=== PATIENT | female | born 1945 | race Caucasian/White ===

== ENCOUNTER 2022-02-07 18:51 | Observation (INO) ==
[2022-02-07] MEDS ORDERED: Naloxone 0.4 MG/ML INJ IVP PRN (23:17)
[2022-02-07] MEDS ORDERED: *HR* OxyCODONE Immed Rel 5 MG TABLET PO PRN (23:17)
[2022-02-07] MEDS ORDERED: Ondansetron ODT 4 MG TAB.RAPDIS SL PRN (23:17)
[2022-02-07] MEDS ORDERED: *HR* HYDROcodone/Acet 5/325 mg TABLET PO PRN (23:17)
[2022-02-07] MEDS ORDERED: Dextrose Gel 15 GM/37.5 ML TUBE PO PRN ×2 (23:41)
[2022-02-07] MEDS ORDERED: D5% in Water 1,000 ML IVC PRN (23:41)
[2022-02-07] MEDS ORDERED: *HR* Dextrose 50 % in Water (Syg) 50 ML SYRINGE IVP PRN (23:41)
[2022-02-08] MEDS: Insulin LISPRO 300 UNITS/3 ML VIAL SUBQ SCH ×5 (00:19→20:46)
[2022-02-08] MEDS: Insulin DETEMIR 100 UNIT/ML X5UNITS SUBQ SCH ×2 (00:21→08:49)
[2022-02-08] MEDS: Aspirin Enteric Coated 81 MG Tablet PO SCH ×2 (00:51→21:56)
[2022-02-08 06:30] LABS: Hematocrit 33.7 % (35.3-44.9); Hemoglobin 10.9 g/dL (11.5-15.4); Mean Corpuscular HGB Conc 32.3 g/dL (31.6-35.5); Mean Corpuscular Hemoglobin 30.4 pg (28.0-33.3); Mean Corpuscular Volume 94.1 fL (83.0-100.0); Mean Platelet Volume 10.9 fL (9.4-12.4); Platelet Count 264 K/mcL (140-400); Red Blood Count 3.58 M/mcL (3.82-4.97); White Blood Count 8.5 K/mcL (4.3-11.1)
[2022-02-08 07:11] LABS: Calcium 9.3 mg/dL (8.6-10.3); Phosphorous 3.3 mg/dL (2.7-4.5); Potassium 3.3 mEq/L (3.5-5.1)
[2022-02-08] MEDS: Isosorbide MONOnitrate (24 HR) 60 MG TAB.ER.24H PO SCH (08:49)
[2022-02-08] MEDS: amLODIPine 5 MG TABLET PO SCH (08:49)
[2022-02-08] MEDS: Furosemide 40 MG TABLET PO SCH (08:49)
[2022-02-08] MEDS ORDERED: 0.9 % Sodium Chloride 250 ML IVC PRN (09:29)
[2022-02-08] MEDS ORDERED: Ethyl Chloride Spray Bottle (104 SPRAY/BOTTLE) TP PRN (09:29)
[2022-02-08 09:30] LABS: Hepatitis B Surface Antibody < 3.10 mIU/mL
[2022-02-08] MEDS ORDERED: 0.9 % Sodium Chloride 2,000 ML PRIME SCH (09:30)
[2022-02-08 09:41] LABS: Hepatitis B Surface Antigen Nonreactive (Nonreactive)
[2022-02-08] MEDS ORDERED: *HR* HYDROcodone/Acet 5/325 mg TABLET PO PRN ×2 (09:49→13:24)
[2022-02-08 11:02] LABS: Estimated Average Glucose 123 mg/dl; Hemoglobin A1C 5.9 %
[2022-02-08] MEDS: Acetaminophen 325 MG TABLET PO PRN (12:20)
[2022-02-08] MEDS: *HR* HYDROcodone/Acet 5/325 mg TABLET PO PRN ×2 (15:15→21:55)
[2022-02-08] MEDS: Melatonin 3 MG TABLET PO PRN (21:56)
[2022-02-09] MEDS: *HR* HYDROcodone/Acet 5/325 mg TABLET PO PRN ×3 (06:04→17:02)
[2022-02-09 06:26] LABS: Basophils # 0.1 K/mcL (0.0-0.2); Basophils % 0.6 %; Eosinophils # 0.3 K/mcL (0.0-0.6); Eosinophils % 3.7 %; Hematocrit 33.7 % (35.3-44.9); Hemoglobin 11.1 g/dL (11.5-15.4); Immature Granulocytes % 0.7 % (0-4); Lymphocytes # 2.5 K/mcL (0.6-4.6); Mean Corpuscular HGB Conc 32.9 g/dL (31.6-35.5); Mean Corpuscular Hemoglobin 31.3 pg (28.0-33.3); Mean Corpuscular Volume 94.9 fL (83.0-100.0); Mean Platelet Volume 10.9 fL (9.4-12.4); Monocytes # 0.8 K/mcL (0.0-1.3); Neutrophils # 4.7 K/mcL (1.6-8.9); Platelet Count 250 K/mcL (140-400); Red Blood Count 3.55 M/mcL (3.82-4.97); Red Cell Distribution Width 13.1 % (11.5-14.5); White Blood Count 8.3 K/mcL (4.3-11.1)
[2022-02-09 06:44] LABS: Calcium 9.1 mg/dL (8.6-10.3); Potassium 3.6 mEq/L (3.5-5.1)
[2022-02-09] MEDS: Insulin LISPRO 300 UNITS/3 ML VIAL SUBQ SCH ×4 (07:41→21:58)
[2022-02-09] MEDS: amLODIPine 5 MG TABLET PO SCH (08:25)
[2022-02-09] MEDS: Isosorbide MONOnitrate (24 HR) 60 MG TAB.ER.24H PO SCH (08:26)
[2022-02-09] MEDS: Aspirin Enteric Coated 81 MG Tablet PO SCH (08:26)
[2022-02-09] MEDS: Furosemide 40 MG TABLET PO SCH (08:26)
[2022-02-09] MEDS ORDERED: Insulin DETEMIR 100 UNIT/ML X5UNITS SUBQ SCH (09:00)
[2022-02-09] MEDS: Acetaminophen 325 MG TABLET PO PRN (09:34)
[2022-02-09] MEDS ORDERED: *HR* HYDROcodone/Acet 5/325 mg TABLET PO PRN (13:54)
[2022-02-09] MEDS: Melatonin 3 MG TABLET PO PRN (20:39)
[2022-02-10 04:57] LABS: Calcium 9.2 mg/dL (8.6-10.3); Potassium 4.3 mEq/L (3.5-5.1)
[2022-02-10] MEDS ORDERED: 0.9 % Sodium Chloride 250 ML IVC PRN (06:46)
[2022-02-10] MEDS ORDERED: 0.9 % Sodium Chloride 2,000 ML PRIME SCH (07:00)
[2022-02-10] MEDS: amLODIPine 5 MG TABLET PO SCH (08:19)
[2022-02-10] MEDS: Aspirin Enteric Coated 81 MG Tablet PO SCH (08:19)
[2022-02-10] MEDS: Furosemide 40 MG TABLET PO SCH (08:19)
[2022-02-10] MEDS: Isosorbide MONOnitrate (24 HR) 60 MG TAB.ER.24H PO SCH (08:19)
[2022-02-10] MEDS: Insulin LISPRO 300 UNITS/3 ML VIAL SUBQ SCH ×4 (08:20→19:16)
[2022-02-10] MEDS ORDERED: Insulin DETEMIR 100 UNIT/ML X5UNITS SUBQ SCH (09:00)
[2022-02-10] MEDS: *HR* HYDROcodone/Acet 5/325 mg TABLET PO PRN (14:25)
[2022-02-11 03:50] LABS: Potassium 4.4 mEq/L (3.5-5.1)
[2022-02-11] MEDS: Furosemide 40 MG TABLET PO SCH (09:00)
[2022-02-11] MEDS: amLODIPine 5 MG TABLET PO SCH (09:00)
[2022-02-11] MEDS: Isosorbide MONOnitrate (24 HR) 60 MG TAB.ER.24H PO SCH (09:01)
[2022-02-11] MEDS: Insulin DETEMIR 100 UNIT/ML X5UNITS SUBQ SCH (09:01)
[2022-02-11] MEDS: Aspirin Enteric Coated 81 MG Tablet PO SCH (09:01)
[2022-02-11] MEDS: Insulin LISPRO 300 UNITS/3 ML VIAL SUBQ SCH ×4 (09:06→19:34)
[2022-02-11] MEDS ORDERED: Acetaminophen 325 MG TABLET PO PRN (12:15)
[2022-02-11] MEDS: *HR* HYDROcodone/Acet 5/325 mg TABLET PO PRN (17:56)
[2022-02-12 03:09] LABS: Calcium 9.2 mg/dL (8.6-10.3); Potassium 4.7 mEq/L (3.5-5.1)
[2022-02-12] MEDS ORDERED: 0.9 % Sodium Chloride 250 ML IVC PRN (07:57)
[2022-02-12] MEDS: Aspirin Enteric Coated 81 MG Tablet PO SCH (08:27)
[2022-02-12] MEDS: Insulin LISPRO 300 UNITS/3 ML VIAL SUBQ SCH ×4 (08:52→21:35)
[2022-02-12] MEDS: Insulin DETEMIR 100 UNIT/ML X5UNITS SUBQ SCH (08:52)
[2022-02-12] MEDS: Isosorbide MONOnitrate (24 HR) 60 MG TAB.ER.24H PO SCH (14:49)
[2022-02-12] MEDS: amLODIPine 5 MG TABLET PO SCH (14:49)
[2022-02-12] MEDS: Furosemide 40 MG TABLET PO SCH (14:49)
[2022-02-13 07:09] VITALS: O2SAT 96
[2022-02-13] MEDS: Furosemide 40 MG TABLET PO SCH (08:45)
[2022-02-13] MEDS: *HR* HYDROcodone/Acet 5/325 mg TABLET PO PRN ×2 (08:45→15:25)
[2022-02-13] MEDS: amLODIPine 5 MG TABLET PO SCH (08:46)
[2022-02-13] MEDS: Insulin LISPRO 300 UNITS/3 ML VIAL SUBQ SCH ×2 (08:46→13:52)
[2022-02-13] MEDS: Aspirin Enteric Coated 81 MG Tablet PO SCH (08:46)
[2022-02-13] MEDS: Insulin DETEMIR 100 UNIT/ML X5UNITS SUBQ SCH (08:50)
[2022-02-13] MEDS: Isosorbide MONOnitrate (24 HR) 60 MG TAB.ER.24H PO SCH (08:50)
[2022-02-13 11:39] VITALS: BP 116/87; PULSE 66; TEMP 98
== END 2022-02-13 15:31 | disposition other institution (70) ==
LOC: 2ANU → SUATTDRO 22:55
PROVIDERS: ADMIT Internal Medicine; ATTEND Family Medicine

== ENCOUNTER 2022-03-18 14:59 | Inpatient (IN) ==
[2022-03-18] MEDS ORDERED: Naloxone 0.4 MG/ML INJ IVP PRN (18:48)
[2022-03-18 20:11] LABS: Adenovirus Not Detected (Not Detect); Bordetella Pertussis Not Detected (Not Detect); Chlamydophila pneumoniae Not Detected (Not Detect); Coronavirus 229E Not Detected (Not Detect); Coronavirus HKU1 Not Detected (Not Detect); Coronavirus NL63 Not Detected (Not Detect); Coronavirus OC43 Not Detected (Not Detect); Human Metapneumovirus Not Detected (Not Detect); Human Rhinovirus/Enterovirus Not Detected (Not Detect); Influenza A Subtype 2009 H1 Not Detected (Not Detect); Influenza B Not Detected (Not Detect); Mycoplasma pneumoniae Not Detected (Not Detect); Parainfluenza Virus 1 Not Detected (Not Detect); Parainfluenza Virus 2 Not Detected (Not Detect); Parainfluenza Virus 3 Not Detected (Not Detect); Parainfluenza Virus 4 Not Detected (Not Detect); Respiratory Syncytial Virus Not Detected (Not Detect); SARS-CoV-2 Not Detected (Not Detect)
[2022-03-18] MEDS ORDERED: 0.9 % Sodium Chloride 500 ML IVC ONE (20:38)
[2022-03-18 20:41] LABS: Basophils % 0.3 %; Hematocrit 33.4 % (35.3-44.9); Hemoglobin 11.6 g/dL (11.5-15.4); Immature Granulocytes % 0.5 % (0-4); Lymphocytes # 0.5 K/mcL (0.6-4.6); Lymphocytes % 5.6 %; Mean Corpuscular HGB Conc 34.7 g/dL (31.6-35.5); Mean Corpuscular Hemoglobin 31.2 pg (28.0-33.3); Mean Corpuscular Volume 89.8 fL (83.0-100.0); Mean Platelet Volume 10.2 fL (9.4-12.4); Monocytes # 0.5 K/mcL (0.0-1.3); Monocytes % 5.3 %; Neutrophils # 8.3 K/mcL (1.6-8.9); Platelet Count 244 K/mcL (140-400); Red Blood Count 3.72 M/mcL (3.82-4.97); Red Cell Distribution Width 12.8 % (11.5-14.5); Segmented Neutrophils % 88.3 %; White Blood Count 9.4 K/mcL (4.3-11.1)
[2022-03-18 20:56] LABS: Platelet Estimate Normal (Normal)
[2022-03-18 21:00] LABS: Calcium 9.2 mg/dL (8.6-10.3); Magnesium 1.4 mg/dL (1.6-2.6); Phosphorous 2.2 mg/dL (2.7-4.5); Potassium 3.9 mEq/L (3.5-5.1)
[2022-03-18 21:21] LABS: VBG HCO3 22 mEq/L (21-27); VBG PCO2 28 mmHg (41-51); VBG PO2 102 mmHg (25-50)
[2022-03-18] MEDS ORDERED: Azithromycin 500 MG in 0.9 % Sodium Chloride 250 ML IVPB ONE (22:22)
[2022-03-18] MEDS ORDERED: Magnesium Sulfate 1 GM/102 ML PIGGYBACK IVPB ONE (22:24)
[2022-03-18] MEDS ORDERED: *HR* Heparin 5,000 UNIT/ML VIAL IVP ONE (22:32)
[2022-03-18] MEDS ORDERED: *HR* Heparin 5,000 UNIT/ML VIAL IVP PRN ×2 (22:32)
[2022-03-18] MEDS ORDERED: Heparin 25,000UNIT/250ML 1/2NS 25,000 UNIT/250 ML IV.SOLN IVC SCH (22:45)
[2022-03-18] MEDS ORDERED: D5% in Water 1,000 ML IVC PRN (22:54)
[2022-03-18] MEDS ORDERED: Dextrose Gel 15 GM/37.5 ML TUBE PO PRN ×2 (22:54)
[2022-03-18] MEDS ORDERED: *HR* Dextrose 50 % in Water (Syg) 50 ML SYRINGE IVP PRN (22:54)
[2022-03-18 23:09] LABS: Bilirubin,Urine Negative (Negative); Blood,Urine Moderate (Negative); Clarity,Urine Ex.Turbid (Clear); Color,Urine Yellow (Yellow); Glucose,Urine (UA) 70 mg/dL (Normal); Ketones,Urine Negative (Negative); Leukocyte Esterase,Urine Large (Negative); Mucus,Urine Few per lpf (None-Few); Nitrite,Urine Negative (Negative); Protein,Urine >=600 mg/dL (Neg-Trace); RBC,Urine 50-100 per hpf (0-3); Renal Epithelial Cells,Urine Few per hpf (None-Few); Specific Gravity,Urine 1.026 (1.010-1.025); Urobilinogen,Urine Normal (Normal); WBC,Urine TNTC per hpf (0-3)
[2022-03-19] MEDS ORDERED: 0.9 % Sodium Chloride 500 ML IVC ONE ×2 (00:24→04:35)
[2022-03-19] MEDS ORDERED: Vancomycin 1,500 MG/265 ML IV.SOLN IVPB ONE (01:16)
[2022-03-19] MEDS: Insulin LISPRO 300 UNITS/3 ML VIAL SUBQ SCH ×4 (01:34→18:24)
[2022-03-19 02:07] LABS: Basophils % 0.4 %; Hematocrit 29.9 % (35.3-44.9); Hemoglobin 10.2 g/dL (11.5-15.4); Immature Granulocytes % 0.9 % (0-4); Lymphocytes # 0.5 K/mcL (0.6-4.6); Mean Corpuscular HGB Conc 34.1 g/dL (31.6-35.5); Mean Corpuscular Volume 90.9 fL (83.0-100.0); Mean Platelet Volume 10.3 fL (9.4-12.4); Monocytes # 0.6 K/mcL (0.0-1.3); Monocytes % 4.9 %; Platelet Count 221 K/mcL (140-400); Red Blood Count 3.29 M/mcL (3.82-4.97); Red Cell Distribution Width 12.8 % (11.5-14.5); Segmented Neutrophils % 89.8 %; White Blood Count 11.2 K/mcL (4.3-11.1)
[2022-03-19 02:10] LABS: Calcium 8.8 mg/dL (8.6-10.3); Magnesium 1.6 mg/dL (1.6-2.6); Phosphorous 2.5 mg/dL (2.7-4.5); Potassium 3.7 mEq/L (3.5-5.1)
[2022-03-19 02:25] LABS: Troponin I 0.21 ng/mL (< 0.04)
[2022-03-19 02:32] LABS: Neutrophils # 10.1 K/mcL (1.6-8.9)
[2022-03-19 03:30] LABS: Estimated Average Glucose 154 mg/dl
[2022-03-19] MEDS ORDERED: Acetaminophen 325 MG TABLET PO PRN (04:30)
[2022-03-19] MEDS ORDERED: MetroNIDAZOLE 500 MG/100 ML 500 MG/100 ML BAG IVPB SCH (05:00)
[2022-03-19] MEDS: *HR* Heparin 5,000 UNIT/ML VIAL SQ SCH ×3 (05:51→22:55)
[2022-03-19] MEDS ORDERED: Ampicillin/Sulbactam 3,000 MG in 0.9 % Sodium Chloride Mini Bag 100 ML IVPB SCH (06:00)
[2022-03-19] MEDS ORDERED: Piperacillin/Tazobactam 3.375 GM in 0.9 % Sodium Chloride Mini Bag 100 ML IVPB SCH (06:00)
[2022-03-19] MEDS ORDERED: CEFEPIME HCL IVPB SCH (06:00)
[2022-03-19] MEDS ORDERED: SODIUM CHLORIDE MINI 0.9% IVPB SCH (06:00)
[2022-03-19] MEDS ORDERED: Ampicillin 2,000 MG in 0.9 % Sodium Chloride Mini Bag 100 ML IVPB SCH (08:00)
[2022-03-19] MEDS: Ampicillin 2,000 MG in 0.9 % Sodium Chloride Mini Bag 100 ML IVPB SCH ×2 (09:02→20:31)
[2022-03-19 10:39] LABS: Hepatitis B Surface Antibody < 3.10 mIU/mL
[2022-03-19 10:51] LABS: Hepatitis B Surface Antigen Nonreactive (Nonreactive)
[2022-03-19 11:24] LABS: Alanine Aminotransferase 8 Units/L (7-52); Albumin 2.8 g/dL (3.5-5.7); Albumin/Globulin Ratio 0.9 (1.1-2.2); Alkaline Phosphatase 70 Units/L (34-104); Aspartate Amino Transferase 16 Units/L (13-39); BUN/Creatinine Ratio 9 (6-26); Bilirubin,Direct 0.3 mg/dL (0.0-0.2); Bilirubin,Indirect 0.3 mg/dL (0.0-1.0); Bilirubin,Total 0.6 mg/dL (0.3-1.0); Blood Urea Nitrogen 33 mg/dL (8-23); Calcium 8.7 mg/dL (8.6-10.3); Carbon Dioxide 19 mEq/L (23-29); Chloride 94 mEq/L (98-107); Ferritin 683 ng/mL (10-120); Glucose 149 mg/dL (70-105); Iron < 10 mcg/dL (50-170); Osmolality,Calculated 272 (280-300); Potassium 3.8 mEq/L (3.5-5.1); Sodium 126 mEq/L (136-145); Total Protein 5.8 g/dL (6.4-8.9); Transferrin 121 mg/dL (203-362); Troponin I 0.32 ng/mL (< 0.04)
[2022-03-19] MEDS ORDERED: Morphine Sulfate 2 MG/ML SYRINGE IVP ONE (14:15)
[2022-03-19] MEDS ORDERED: *HR* LORazepam 2 MG/ML VIAL IVP ONE (14:16)
[2022-03-19] MEDS: Acetaminophen IV 1,000 MG/100 ML BAG IVPB SCH ×2 (14:23→20:31)
[2022-03-19 14:42] LABS: Amphetamine Screen,Urine Negative ng/mL (Cutoff=1000); Barbiturate Screen,Urine Negative ng/mL (Cutoff=200); Benzodiazepines Screen,Urine Negative ng/mL (Cutoff=200); Cannabinoid Screen,Urine Negative ng/mL (Cutoff = 50); Cocaine Screen,Urine Negative ng/mL (Cutoff= 300); Opiate Screen,Urine Positive ng/mL (Cutoff=300); Phencyclidine Screen,Urine Negative ng/mL (Cutoff=25)
[2022-03-19 16:18] LABS: Potassium 5.3 mEq/L (3.5-5.1)
[2022-03-19 16:53] LABS: Calcium 9.2 mg/dL (8.6-10.3); Potassium 4.7 mEq/L (3.5-5.1)
[2022-03-19] MEDS ORDERED: Cefepime HCl 2,000 MG in 0.9 % Sodium Chloride 10 ML IVP ONE (17:00)
[2022-03-19 17:11] LABS: Troponin I 1.41 ng/mL (< 0.04)
[2022-03-19] MEDS ORDERED: cefTRIAXone 2,000 MG in 0.9 % Sodium Chloride Mini Bag 100 ML IVPB SCH (18:00)
[2022-03-19] MEDS ORDERED: Insulin LISPRO 300 UNITS/3 ML VIAL SUBQ SCH (21:00)
[2022-03-19] MEDS ORDERED: ceFAZolin 2,000 MG in 0.9 % Sodium Chloride 100 ML IVPB ONE (21:13)
[2022-03-19 23:04] LABS: Potassium 5.5 mEq/L (3.5-5.1)
[2022-03-20] MEDS: Insulin LISPRO 300 UNITS/3 ML VIAL SUBQ SCH ×4 (00:55→17:18)
[2022-03-20 03:07] LABS: A.calcoaceticus-baumannii cplx Not Detected (Not Detect); Bacteroides fragilis by PCR Not Detected (Not Detect); Candida albicans by PCR Not Detected (Not Detect); Candida auris by PCR Not Detected (Not Detect); Candida glabrata by PCR Not Detected (Not Detect); Candida krusei by PCR Not Detected (Not Detect); Candida parapsilosis by PCR Not Detected (Not Detect); Candida tropicalis by PCR Not Detected (Not Detect); Crypto. neoformans/gattii PCR Not Detected (Not Detect); Enterobacter cloacae Cmplx PCR Not Detected (Not Detect); Enterobacterales by PCR Not Detected (Not Detect); Enterococcus faecalis by PCR Not Detected (Not Detect); Enterococcus faecium by PCR Not Detected (Not Detect); Escherichia coli by PCR Not Detected (Not Detect); Klebs. pneumoniae group by PCR Not Detected (Not Detect); Klebsiella aerogenes by PCR Not Detected (Not Detect); Klebsiella oxytoca by PCR Not Detected (Not Detect); Proteus by PCR Not Detected (Not Detect); Pseudomonas aeruginosa by PCR Not Detected (Not Detect); Salmonella species by PCR Not Detected (Not Detect); Serratia marcescens by PCR Not Detected (Not Detect); Staph epidermidis by PCR Not Detected (Not Detect); Staph lugdunensis by PCR Not Detected (Not Detect); Staphylococcus aureus by PCR DETECTED (Not Detect); Staphylococcus by PCR Not Detected (Not Detect); Stenotrophomonas maltophilia Not Detected (Not Detect); Streptococcus agalactiae(B)PCR Not Detected (Not Detect); Streptococcus by PCR Not Detected (Not Detect); Streptococcus pneumoniae PCR Not Detected (Not Detect); Streptococcus pyogenes (A) PCR Not Detected (Not Detect); mecA/C & MREJ (MRSA) Gene DETECTED (Not Detect)
[2022-03-20 03:14] LABS: Hematocrit 32.4 % (35.3-44.9); Hemoglobin 10.5 g/dL (11.5-15.4); Mean Corpuscular HGB Conc 32.4 g/dL (31.6-35.5); Mean Corpuscular Hemoglobin 31.3 pg (28.0-33.3); Mean Corpuscular Volume 96.4 fL (83.0-100.0); Mean Platelet Volume 10.2 fL (9.4-12.4); Platelet Count 211 K/mcL (140-400); Red Blood Count 3.36 M/mcL (3.82-4.97); Red Cell Distribution Width 13.2 % (11.5-14.5); White Blood Count 12.1 K/mcL (4.3-11.1)
[2022-03-20 03:24] LABS: Chol/HDL Ratio 6.1 (0-4.9)
[2022-03-20 03:36] LABS: Calcium 8.9 mg/dL (8.6-10.3); Magnesium 1.9 mg/dL (1.6-2.6); Potassium 3.9 mEq/L (3.5-5.1)
[2022-03-20 03:37] LABS: Monocytes # 0.2 K/mcL (0.0-1.3); Neutrophils # 10.9 K/mcL (1.6-8.9); Platelet Estimate Normal (Normal); Smudge Cells Present (Not Present)
[2022-03-20] MEDS ORDERED: Naloxone 0.4 MG/ML INJ IVP PRN (05:39)
[2022-03-20] MEDS: *HR* HYDROcodone/Acet 5/325 mg TABLET PO PRN ×2 (05:49→12:44)
[2022-03-20] MEDS: *HR* Heparin 5,000 UNIT/ML VIAL SQ SCH ×2 (05:49→14:47)
[2022-03-20] MEDS: Acetaminophen IV 1,000 MG/100 ML BAG IVPB SCH (05:49)
[2022-03-20] MEDS ORDERED: Cefepime HCl 1,000 MG in 0.9 % Sodium Chloride Mini Bag 100 ML IVPB SCH (06:00)
[2022-03-20] MEDS ORDERED: 0.9 % Sodium Chloride 250 ML IVC PRN (07:36)
[2022-03-20] MEDS ORDERED: 0.9 % Sodium Chloride 2,000 ML PRIME SCH (07:45)
[2022-03-20] MEDS ORDERED: cefTRIAXone 1,000 MG in 0.9 % Sodium Chloride Mini Bag 100 ML IVPB SCH (07:51)
[2022-03-20 08:45] LABS: Calcium 8.9 mg/dL (8.6-10.3); Potassium 3.6 mEq/L (3.5-5.1)
[2022-03-20] MEDS ORDERED: Ampicillin 2,000 MG in 0.9 % Sodium Chloride Mini Bag 100 ML IVPB SCH (09:00)
[2022-03-20 12:09] LABS: Potassium 3.5 mEq/L (3.5-5.1)
[2022-03-20] MEDS ORDERED: Acetaminophen IV 1,000 MG/100 ML BAG IVPB ONE (13:51)
[2022-03-20] MEDS ORDERED: Vancomycin 1,250 MG/262.5 ML IV.SOLN IVPB ONE (16:00)
[2022-03-20] MEDS ORDERED: Acetaminophen IV 1,000 MG/100 ML BAG IVPB SCH (16:00)
[2022-03-20 16:15] LABS: Calcium 8.9 mg/dL (8.6-10.3); Potassium 3.9 mEq/L (3.5-5.1)
[2022-03-20] MEDS ORDERED: *HR* OxyCODONE Immed Rel 5 MG TABLET PO PRN (16:23)
[2022-03-20 20:00] VITALS: BP 145/89; TEMP 98.4; O2SAT 96
[2022-03-20] MEDS ORDERED: *HR* OxyCODONE Immed Rel 5 MG TABLET PO ONE (20:01)
[2022-03-20 22:43] VITALS: PULSE 97
[2022-03-21] MEDS ORDERED: CeFAZolin 2,000 MG/120 ML BAG IVPB SCH (16:00)
== END 2022-03-20 23:26 | disposition short-term general hospital (02) | DRG 871 ==
LOC: 2ANU → SUATTDRO 17:43 → 2NENU 03-19 09:06 → 2NNU 03-19 12:59
PROVIDERS: ADMIT Internal Medicine; ATTEND Pharmacist